=== PATIENT | male | born 1955 | race American Indian/Alaskan Native ===

== ENCOUNTER 2017-08-08 10:45 | Emergency (ER) | payer SELFPAY ==
[2017-08-08] MEDS ORDERED: ZOFRAN IV ONE (11:50)
[2017-08-08] MEDS ORDERED: NACL 0.9% 1000 ML 1,000 ML IV ONE (11:50)
[2017-08-08] MEDS ORDERED: TORADOL IV ONE (11:50)
[2017-08-08] MEDS ORDERED: PEPCID IV ONE (11:50)
--- NOTE | 2017-08-08 11:53 | Emergency Department Report ---
Blank Doc - Documentation Documentation: Patient is 62-year-old male who is has several months of nausea vomiting and epigastric pain. Patient was seen [facility] early this week and had a CT and ultrasound performed which according to the patient's was within normal limits. Patient was told it was slightly dehydrated was discharged home. Patient has had continued pain and has had 2 syncopal episodes after standing in the last week. Patient states the pain is epigastric it out of 10 and does radiate to the back. Patient denies any recent alcohol use. Patient states there is no diarrhea no chest pain shortness of breath fevers or chills this time. Brief physical exam patient has some epigastric discomfo. Patient will be moved to a treatment room for IV fluids laboratory investigation as well as a CT abdomen. Rt
[2017-08-08 12:16] LABS: Hematocrit 41.4 % (35.5-45.6); Hemoglobin 13.8 gm/dl (11.8-15.2); Mean Corpuscular HGB Conc 33 % (32-34); Mean Corpuscular Hemoglobin 30 pg (28-32); Mean Corpuscular Volume 91 fl (84-94); Platelet Count 357 K/mm3 (140-440); Red Blood Count 4.58 M/mm3 (3.65-5.03); Red Cell Distribution Width 13.6 % (13.2-15.2)
[2017-08-08 12:31] LABS: Alanine Aminotransferase 10 units/L (7-56); Albumin 4.4 g/dL (3.9-5); BUN/Creatinine Ratio 16; Blood Urea Nitrogen 18 mg/dL (9-20); Calcium 9.8 mg/dL (8.4-10.2); Hemolysis Index 11; Lipase 38 units/L (13-60)
[2017-08-08 13:45] LABS: Total Cells Counted 100
[2017-08-08 13:46] LABS: Basophils % (Manual) 0 % (0.0-1.8); Eosinophils % (Manual) 0 % (0.0-4.3); Platelet Estimate Consistent w Auto
--- NOTE | 2017-08-08 14:06 | Cat Scan Report ---
FINAL REPORT EXAM: CT ABDOMEN PELVIS WO CON HISTORY: epigastric pain NV TECHNIQUE: CT of the abdomen and pelvis without IV contrast. Coronal and sagittal reconstructed imaging provided. PRIORS: None currently available. FINDINGS: Evaluation limited by the lack intravenous contrast and intra-abdominal. ABDOMEN: Images of the esophagus are unremarkable. Liver, gallbladder, stomach, spleen, pancreas, adrenals, and kidneys are grossly unremarkable a noncontrast scan. No hydronephrosis. No nephroureteral stones. There is no abdominal aortic aneurysm. Moderate atherosclerotic disease noted. IVC is unremarkable. There is no periaortic or retroperitoneal adenopathy or mass. Knaa-yu-rbawynio stool. More moderate stool in the right colon. No wall thickening or inflammatory changes. Terminal ileum is unremarkable. The appendix is not identified. Pericecal region is obscured. Appendicitis is not entirely excluded. Small bowel loops are unremarkable. No obstructive pattern. No free air. No free fluid. Mesentery is unremarkable. Fat-containing umbilical hernia without strangulation. PELVIS: Distended bladder. No wall thickening. No stone. Enlarged heterogeneous prostate. There is no pelvic mass or adenopathy. Inguinal regions are unremarkable. Bones: No suspicious osseous lesions on this limited examination of the skeleton. Metastatic disease better evaluated with bone scan. Degenerative changes are in the spine. Chronic 50-75 percent compression fracture deformity at L5. IMPRESSION: Evaluation limited by the lack intravenous contrast and intra-abdominal. Appendix is not identified. Pericecal region is obscured. Appendicitis is not entirely excluded. Possible constipation. Distended bladder without wall thickening or stone. Enlarged heterogeneous prostate. Otherwise, no acute findings.
--- NOTE | 2017-08-08 14:46 | Emergency Department Report ---
ED Abdominal Pain HPI - General Chief Complaint: Back Pain/Injury Stated Complaint: BACK PAIN Time Seen by Provider: 08/08/17 11:32 Source: patient, family Mode of arrival: Ambulatory Limitations: No Limitations - History of Present Illness Initial Comments: This is a 62-year-old male he reports that he's been having pain in his epigastric area for a month. Report is seen at [facility] 2 weeks ago and he reports that he was doing yard work and started having abdominal back pain that is worsening. His pain to his abdomen and back disease on a 10 achy sometimes throbbing crampy. Pain is radiating from and epigastric area to his back. Denies any fever or chills. He reports urinary frequency but no urinary burning or urgency. Patient's family member reports that he lost about 50 pounds over the last 3 months. He's never had a colonoscopy. Denies any blood in his stool or any discolored stool. Denies any nausea or vomiting. They also report that patient passed out a few times while he was outside and they did a CT scan 2 weeks ago [facility] of his head which was normal CT scan of his back which she said was normal and it did not work and she family reported only thing they found that he had low potassium which they gave him potassium pills. Patient sister of colon cancer at age 41. He has diabetes that runs in both of his family. But no diabetes. He has a history of high blood pressure and also to his abdomen which he said he had surgery in the past. Denies that he usually goes to [facility] because he lives in [place]. MD Complaint: abdominal pain, other (back pain) Onset/Timin -: month(s) Location: epigastric Radiation: back Migration to: no migration Severity: severe Severity scale (0 -10): 8 Quality: cramping, aching Consistency: constant Improves With: nothing Worsens With: movement Context: other (unknown) Associated Symptoms: anorexia, syncope, other (50 pound weight loss within 3 months). denies: nausea, vomiting, diarrhea, fever, chills, constipation, dysuria, hematemesis, hematochezia, melena, hematuria Treatments Prior to Arrival: other (none) - Related Data Previous Rx's Medication Instructions Recorded Last Taken Type Pantoprazole [Protonix] 40 mg PO QDAY #60 tablet 10/14/13 Unknown Rx Acetaminophen/Codeine [Tylenol 1 tab PO Q6H PRN #12 tab 08/08/17 Unknown Rx /Codeine # 3 tab] Lansoprazole [Prevacid] 30 mg PO QDAY 30 Days #30 08/08/17 Unknown Rx capsule. Allergies Allergy/AdvReac Type Severity Reaction Status Date / Time No Known Allergies Allergy Unverified 07/26/13 09:02 ED Review of Systems ROS: Stated complaint: BACK PAIN Other details as noted in HPI Constitutional: denies: chills, fever Eyes: denies: vision change ENT: denies: ear pain, throat pain, epistaxis, congestion Respiratory: denies: cough, orthopnea, shortness of breath, SOB with exertion, wheezing Cardiovascular: denies: chest pain, palpitations, dyspnea on exertion, edema, syncope, paroxysmal nocturnal dyspnea Endocrine: increased urine, unexplained weight loss (50 pounds over 3 months), other (decreased appetite) Gastrointestinal: abdominal pain, other (loss of appetite). denies: nausea, vomiting, diarrhea, constipation, hematemesis, melena, hematochezia Genitourinary: frequency. denies: urgency, dysuria, hematuria, discharge, testicular pain, testicular mass Musculoskeletal: back pain. denies: joint swelling, arthralgia, myalgia Skin: denies: rash, lesions Neurological: other (past out a few times. None since he had a CT scan of the head at [facility] 2 weeks ago but he said he felt episode of dizziness one since.). denies: headache, weakness, numbness, paresthesias, abnormal gait, vertigo ED Past Medical Hx - Past Medical History Previous Medical History?: Yes Hx Hypertension: Yes Additional medical history: ulcer - Surgical History Past Surgical History?: Yes Additional Surgical History: abdominal surgery (ulcer) - Family History Family history: cancer, diabetes, hypertension - Social History Smoking Status: Current Every Day Smoker Substance Use Type: Non Opiate Pain, Prescribed - Medications Home Medications: Home Medications Medication Instructions Recorded Confirmed Last Taken Type Pantoprazole [Protonix] 40 mg PO QDAY #60 tablet 10/14/13 Unknown Rx Acetaminophen/Codeine [Tylenol 1 tab PO Q6H PRN #12 tab 08/08/17 Unknown Rx /Codeine # 3 tab] Lansoprazole [Prevacid] 30 mg PO QDAY 30 Days #30 08/08/17 Unknown Rx capsule. ED Physical Exam - General Limitations: No Limitations General appearance: alert, in no apparent distress - Head Head exam: Present: atraumatic, normocephalic, normal inspection - Eye Eye exam: Present: normal appearance, PERRL, EOMI Pupils: Present: normal accommodation - ENT ENT exam: Present: normal exam, normal orophraynx, mucous membranes moist - Neck Neck exam: Present: normal inspection, full ROM. Absent: tenderness, lymphadenopathy, thyromegaly - Respiratory Respiratory exam: Present: normal lung sounds bilaterally. Absent: respiratory distress, chest wall tenderness, accessory muscle use - Cardiovascular Cardiovascular Exam: Present: regular rate, normal rhythm, normal heart sounds. Absent: systolic murmur, diastolic murmur - GI/Abdominal GI/Abdominal exam: Present: soft, tenderness (epigastric area), normal bowel sounds. Absent: distended, guarding, rebound, rigid, organomegaly, mass, bruit , pulsatile mass, hernia - Extremities Exam Extremities exam: Present: normal inspection, full ROM, normal capillary refill , other (no clubbing, cyanosis or edema. +2 pulses to all extremities and no neurovascular compromise). Absent: tenderness, pedal edema, joint swelling, calf tenderness - Back Exam Back exam: Present: normal inspection, full ROM, other (ablated so that any difficulties). Absent: tenderness, CVA tenderness (R), CVA tenderness (L), muscle spasm, paraspinal tenderness, vertebral tenderness, rash noted - Neurological Exam Neurological exam: Present: alert, oriented X3 - Psychiatric Psychiatric exam: Present: normal affect, normal mood - Skin Skin exam: Present: warm, dry, intact, normal color. Absent: rash ED Course Vital Signs 08/08/17 08/08/17 08/08/17 10:59 12:12 14:50 Temperature 98.2 F 98.2 F Pulse Rate 75 62 Respiratory 18 20 15 Rate Blood Pressure 157/104 Blood Pressure 143/81 [Right] O2 Sat by Pulse 98 100 Oximetry - Reevaluation(s) Reevaluation #1: 08/08/17 15:34 Patient was screened by Dr. Logan and he was given 1 L normal saline, Toradol 30 mg IV, Zofran 4 mg IV and Pepcid 20 mg IV. Blood pressure is better and he said his pain is better. ED Medical Decision Making - Lab Data Result diagrams: 08/08/17 11:59 08/08/17 11:59 Lab Results 08/08/17 08/08/17 Range/Units 11:59 11:59 WBC 7.8 (4.5-11.0) K/mm3 RBC 4.58 (3.65-5.03) M/mm3 Hgb 13.8 (11.8-15.2) gm/dl Hct 41.4 (35.5-45.6) % MCV 91 (84-94) fl MCH 30 (28-32) pg MCHC 33 (32-34) % RDW 13.6 (13.2-15.2) % Plt Count 357 (140-440) K/mm3 Add Manual Diff Complete Total Counted 100 Seg Neuts % (Manual) 67.0 (40.0-70.0) % Band Neutrophils % 0 % Lymphocytes % (Manual) 26.0 (13.4-35.0) % Reactive Lymphs % (Man) 0 % Monocytes % (Manual) 7.0 (0.0-7.3) % Eosinophils % (Manual) 0 (0.0-4.3) % Basophils % (Manual) 0 (0.0-1.8) % Metamyelocytes % 0 % Myelocytes % 0 % Promyelocytes % 0 % Blast Cells % 0 % Nucleated RBC % Not Reportable Seg Neutrophils # Man 5.2 (1.8-7.7) K/mm3 Band Neutrophils # 0.0 K/mm3 Lymphocytes # (Manual) 2.0 (1.2-5.4) K/mm3 Abs React Lymphs (Man) 0.0 K/mm3 Monocytes # (Manual) 0.5 (0.0-0.8) K/mm3 Eosinophils # (Manual) 0.0 (0.0-0.4) K/mm3 Basophils # (Manual) 0.0 (0.0-0.1) K/mm3 Metamyelocytes # 0.0 K/mm3 Myelocytes # 0.0 K/mm3 Promyelocytes # 0.0 K/mm3 Blast Cells # 0.0 K/mm3 WBC Morphology Not Reportable Hypersegmented Neuts Not Reportable Hyposegmented Neuts Not Reportable Hypogranular Neuts Not Reportable Smudge Cells Not Reportable Toxic Granulation Not Reportable Toxic Vacuolation Not Reportable Dohle Bodies Not Reportable Pelger-Huet Anomaly Not Reportable Angelic Rods Not Reportable Platelet Estimate Consistent w auto Clumped Platelets Not Reportable Plt Clumps, EDTA Not Reportable Large Platelets Not Reportable Giant Platelets Not Reportable Platelet Satelliting Not Reportable Plt Morphology Comment Not Reportable RBC Morphology Not Reportable Dimorphic RBCs Not Reportable Polychromasia Not Reportable Hypochromasia Not Reportable Poikilocytosis Not Reportable Anisocytosis Not Reportable Microcytosis Not Reportable Macrocytosis Not Reportable Spherocytes Not Reportable Pappenheimer Bodies Not Reportable Sickle Cells Not Reportable Target Cells Not Reportable Tear Drop Cells Not Reportable Ovalocytes Not Reportable Helmet Cells Not Reportable Andre-[place] Bodies Not Reportable [place] Rings Not Reportable [place] Cells Not Reportable Bite Cells Not Reportable Crenated Cell Not Reportable Elliptocytes Not Reportable Acanthocytes (Spur) Not Reportable Rouleaux Not Reportable Hemoglobin C Crystals Not Reportable Schistocytes Not Reportable Malaria parasites Not Reportable [place] Bodies Not Reportable Hem Pathologist Commnt No Sodium 140 (137-145) mmol/L Potassium 4.6 (3.6-5.0) mmol/L Chloride 99.2 (98-107) mmol/L Carbon Dioxide 30 (22-30) mmol/L Anion Gap 15 mmol/L BUN 18 (9-20) mg/dL Creatinine 1.1 (0.8-1.5) mg/dL Estimated GFR > 60 ml/min BUN/Creatinine Ratio 16 % Glucose 98 (75-100) mg/dL Calcium 9.8 (8.4-10.2) mg/dL Total Bilirubin 0.40 (0.1-1.2) mg/dL AST 16 (5-40) units/L ALT 10 (7-56) units/L Alkaline Phosphatase 70 (35-129) units/L Total Protein 7.2 (6.3-8.2) g/dL Albumin 4.4 (3.9-5) g/dL Albumin/Globulin Ratio 1.6 % Lipase 38 (13-60) units/L Lab Results 08/08/17 08/08/17 08/08/17 Range/Units 11:59 11:59 Unknown WBC 7.8 (4.5-11.0) K/mm3 RBC 4.58 (3.65-5.03) M/mm3 Hgb 13.8 (11.8-15.2) gm/dl Hct 41.4 (35.5-45.6) % MCV 91 (84-94) fl MCH 30 (28-32) pg MCHC 33 (32-34) % RDW 13.6 (13.2-15.2) % Plt Count 357 (140-440) K/mm3 Add Manual Diff Complete Total Counted 100 Seg Neuts % (Manual) 67.0 (40.0-70.0) % Band Neutrophils % 0 % Lymphocytes % (Manual) 26.0 (13.4-35.0) % Reactive Lymphs % (Man) 0 % Monocytes % (Manual) 7.0 (0.0-7.3) % Eosinophils % (Manual) 0 (0.0-4.3) % Basophils % (Manual) 0 (0.0-1.8) % Metamyelocytes % 0 % Myelocytes % 0 % Promyelocytes % 0 % Blast Cells % 0 % Nucleated RBC % Not Reportable Seg Neutrophils # Man 5.2 (1.8-7.7) K/mm3 Band Neutrophils # 0.0 K/mm3 Lymphocytes # (Manual) 2.0 (1.2-5.4) K/mm3 Abs React Lymphs (Man) 0.0 K/mm3 Monocytes # (Manual) 0.5 (0.0-0.8) K/mm3 Eosinophils # (Manual) 0.0 (0.0-0.4) K/mm3 Basophils # (Manual) 0.0 (0.0-0.1) K/mm3 Metamyelocytes # 0.0 K/mm3 Myelocytes # 0.0 K/mm3 Promyelocytes # 0.0 K/mm3 Blast Cells # 0.0 K/mm3 WBC Morphology Not Reportable Hypersegmented Neuts Not Reportable Hyposegmented Neuts Not Reportable Hypogranular Neuts Not Reportable Smudge Cells Not Reportable Toxic Granulation Not Reportable Toxic Vacuolation Not Reportable Dohle Bodies Not Reportable Pelger-Huet Anomaly Not Reportable Angelic Rods Not Reportable Platelet Estimate Consistent w auto Clumped Platelets Not Reportable Plt Clumps, EDTA Not Reportable Large Platelets Not Reportable Giant Platelets Not Reportable Platelet Satelliting Not Reportable Plt Morphology Comment Not Reportable RBC Morphology Not Reportable Dimorphic RBCs Not Reportable Polychromasia Not Reportable Hypochromasia Not Reportable Poikilocytosis Not Reportable Anisocytosis Not Reportable Microcytosis Not Reportable Macrocytosis Not Reportable Spherocytes Not Reportable Pappenheimer Bodies Not Reportable Sickle Cells Not Reportable Target Cells Not Reportable Tear Drop Cells Not Reportable Ovalocytes Not Reportable Helmet Cells Not Reportable Andre-[place] Bodies Not Reportable [place] Rings Not Reportable [place] Cells Not Reportable Bite Cells Not Reportable Crenated Cell Not Reportable Elliptocytes Not Reportable Acanthocytes (Spur) Not Reportable Rouleaux Not Reportable Hemoglobin C Crystals Not Reportable Schistocytes Not Reportable Malaria parasites Not Reportable Cayetano Bodies Not Reportable Hem Pathologist Commnt No Sodium 140 (137-145) mmol/L Potassium 4.6 (3.6-5.0) mmol/L Chloride 99.2 (98-107) mmol/L Carbon Dioxide 30 (22-30) mmol/L Anion Gap 15 mmol/L BUN 18 (9-20) mg/dL Creatinine 1.1 (0.8-1.5) mg/dL Estimated GFR > 60 ml/min BUN/Creatinine Ratio 16 % Glucose 98 (75-100) mg/dL Calcium 9.8 (8.4-10.2) mg/dL Total Bilirubin 0.40 (0.1-1.2) mg/dL AST 16 (5-40) units/L ALT 10 (7-56) units/L Alkaline Phosphatase 70 (35-129) units/L Total Protein 7.2 (6.3-8.2) g/dL Albumin 4.4 (3.9-5) g/dL Albumin/Globulin Ratio 1.6 % Lipase 38 (13-60) units/L Urine Color Yellow (Yellow) Urine Turbidity Clear (Clear) Urine pH 5.0 (5.0-7.0) Ur Specific [place] 1.014 (1.003-1.030) Urine Protein <15 mg/dl (Negative) mg/dL Urine Glucose (UA) Neg (Negative) mg/dL Urine Ketones Neg (Negative) mg/dL Urine Blood Neg (Negative) Urine Nitrite Neg (Negative) Urine Bilirubin Neg (Negative) Urine Urobilinogen < 2.0 (<2.0) mg/dL Ur Leukocyte Esterase Neg (Negative) Urine WBC (Auto) 1.0 (0.0-6.0) /HPF Urine RBC (Auto) 3.0 (0.0-6.0) /HPF Urine Mucus Few /HPF - Radiology Data Radiology results: report reviewed Findings [facility] [address] [id number] Cat Scan Report Signed Patient: RHONDA BANERJEE MR#: [id number] : 1955 Acct:[id number] Age/Sex: 58 / M ADM Date: 10/13/13 Loc: ED Attending Dr: Ordering Physician: HARVEY DRUMMOND MD Date of Service: 10/13/13 Procedure(s): CT abdomen pelvis wo con Accession Number(s): [id number] cc: HARVEY DRUMMOND MD PROCEDURE: CT ABDOMEN AND PELVIS WITHOUT CONTRAST TECHNIQUE: Computerized axial tomography of the abdomen and pelvis was performed without intravenous contrast. This study is performed without intravascular contrast material and its sensitivity for abdominal and pelvic pathology, including neoplasms, inflammation, abscess, free fluid, thrombosis, arterial dissection and infarction, is reduced compared with a contrast enhanced study. CPT 87567 HISTORY: ABD PAIN COMPARISONS: Prior studies are not available to compare. TECHNICAL QUALITY: Satisfactory FINDINGS: Visualized lower thorax: Mild linear scarring left lung base. Liver: Normal size and attenuation. Spleen: Normal size and attenuation. Gallbladder and biliary system: Normal. Pancreas: Normal. Adrenals: Normal. Kidneys: Normal. GI tract: There is apparent severe circumferential wall thickening of the distal stomach and/or proximal duodenum. This is nonspecific but appears definitely abnormal. This could be due to inflammation. However a tumor could easily have a similar appearance. Tumor here is definitely not excluded. There is some luminal narrowing of the distal stomach and proximal duodenum as result of this. Evaluation is limited without oral contrast. There is a moderate amount of stool throughout the colon greater on the right side. GI tract appears unremarkable otherwise for noncontrast exam. However I cannot specifically identify the appendix. This in part is due to the fact the patient is very thin with a paucity of abdominal fat. This limits detection of inflammation in general. Lymph nodes and mesentery: Normal. Vasculature: Normal. Bladder: Normal. Reproductive organs: Normal. Peritoneum: No free fluid. Musculoskeletal structures: Moderate to severe compression of the L5 vertebral body of indeterminate age. Other: None. IMPRESSION: 1. THERE IS APPARENT SEVERE CIRCUMFERENTIAL WALL THICKENING OF THE DISTAL STOMACH AND/OR PROXIMAL DUODENUM. THIS IS NONSPECIFIC BUT A GASTRIC OR DUODENAL TUMOR COULD EASILY HAVE AN APPEARANCE SUCH THIS. IT COULD BE DUE TO INFLAMMATION BUT AGAIN TUMOR IS DEFINITELY NOT EXCLUDED AND THIS REQUIRES FURTHER EVALUATION. FURTHER EVALUATION WITH ENDOSCOPY RECOMMENDED. EVALUATION IS SOMEWHAT LIMITED ON THIS SCAN WITHOUT ORAL CONTRAST. 2. MODERATE TO SEVERE COMPRESSION OF THE L5 VERTEBRAL BODY. THIS IS OF INDETERMINATE AGE. IT COULD BE ALL OLD BUT IF THERE ARE ACUTE SYMPTOMS REFERABLE TO THIS LEVEL IT COULD BE AN ACUTE COMPRESSION FRACTURE. THERE IS NO SIGNIFICANT RETROLISTHESIS. 3. EVALUATION FOR INFLAMMATION IS SOMEWHAT LIMITED BECAUSE THE PATIENT IS VERY THIN WITH A PAUCITY OF ABDOMINAL FAT 4. THERE IS NO EVIDENCE FREE AIR ws:LISHA Electronically Signed By Arsenio Husain M.D. on 2013-10-13 23:28 CTZ Transcribed By: JACK Dictated By: ARSENIO HUSAIN MD Electronically Authenticated By: ARSENIO HUSAIN MD Signed Date/Time: 10/13/132330 DD/ 35 TD/TT: 10/13/132335 - Medical Decision Making ED course: This is a 62-year-old male here reports that he has epigastric sternal pain that radiated to his back and family reports that he lost 50 pounds in 3 months. Patient reports urinary frequency but no burning or urination. Denies any nausea or vomiting. Denies any neurological symptoms to include loss of bowel or bladder function or numbness certainly into extremities. He is here to be evaluated. Patient was seen at [facility] [address] scan of the back per family and they did not see anything. He also had lab work done and family reported that everything was normal except his potassium was low so they gave him potassium replacement. Family also reports the patient has near syncopal episode with couple episode of passing out and they did CT scan of the head at [facility] and did not find anything. Patient was screened by Dr. Logan and labs and diagnostic tests ordered. Patient had CT scan of the abdomen and pelvis without contrast this was dictated by radiologist and report reviewed by myself and this showed patient with mass between stomach and small intestine, L5 compression fracture which radiologist report is more likely subacute but does not know inpatient does not have any neurological deficit without any loss of bowel or bladder function. CT scan also showed patient with a large prostate this with suggest why he is having urinary frequency. Patient did not know this. He has never had a colonoscopy. Patient also had CBC, CMP, lipase and urinalysis which were all stable. Lab results and CT scan findings discussed with patient and family and they voiced understanding. Patient with epigastric abdominal pain, abdominal mass, urinary frequency, enlarged prostate, L5 compression fracture without any abnormal neurological symptoms, malnourishment BMI of 16.9. Weight loss of 50 pounds over 3 months. I discussed this with Dr. Logan and patient will need to follow-up with [facility] primary care and also gastroenterology for further evaluation and management. I discussed this with family in detail and told them that they need to bring patient to [facility] and he'll start off with primary care and I also gave them a copy of CT and lab reports and report of CT scan. I encouraged patient that he needs to increase his fluid intake and also drink boost to increase his weight. He was given 1 L of normal saline IV and is able to tolerate oral liquids in the emergency room. He was given Toradol 30 mg IV, Zofran 4 mg IV and Pepcid 20 mg IV and he said he feels better. I gave him prescription for Zantac because he has a history of stomach ulcer with previous surgery. He also got prescriptions for Tylenol 3 to manage pain. Patient discharged home with his family and voices understanding of discharge instruction to follow up with [facility] in 3 days. I also discussed with him he needs to come back to the emergency room if his condition worsens. He voiced understanding. Patient vital signs are stable and is afebrile. He is nontoxic in appearance - Differential Diagnosis malignancy of GI system, GI ulcer, UTI, kidney stones Critical care attestation.: If time is entered above; I have spent that time in minutes in the direct care of this critically ill patient, excluding procedure time. ED Disposition Clinical Impression: Mass of stomach, Epigastric abdominal pain, H/O gastric ulcer, Low body mass index (BMI) Malnourished Qualifiers: Malnutrition type: unspecified type Qualified Code(s): E46 - Unspecified protein-calorie malnutrition Back pain Qualifiers: Back pain location: back pain in other location Chronicity: unspecified Qualified Code(s): M54.89 - Other dorsalgia Closed compression fracture of L5 lumbar vertebra Qualifiers: Encounter type: initial encounter Qualified Code(s): S32.050A - Wedge compression fracture of fifth lumbar vertebra, initial encounter for closed fracture Disposition: DC-01 TO HOME OR SELFCARE Is pt being admited?: No Does the pt Need Aspirin: No Condition: Stable Instructions: Colonoscopy (GEN), Benign Prostatic Hypertrophy (ED), Stomach Cancer (ED), Vertebral Compression Fracture (ED), Upper Endoscopic Gastrointestinal Ultrasonography (ED), Abdominal Pain (ED), Back Pain (ED) Additional Instructions: Since he go to [facility] for your care please follow up with [facility] 3 days and bring all your paperwork with U along with the CT and lab results. Please increase her fluid intake and try to drink boost which can increase your weight because you are underweight. If his symptoms worsen, develop bleeding, dizziness, feeling of passing out or if he passed out, fever and/or chills, increase in abdominal or back pain, numbness or tingling to your legs, loss of bowel or bladder function please return to the emergency room Follow up at [facility] for primary care and also for stomach doctor which is gastroenterology. CT scan is obtained that you have fracture in your lower back which is probably old fracture and that you have a mass between year stomach and use small intestine so you'll need to have endoscopy by stomach doctor for further investigation. Prescriptions: Acetaminophen/Codeine [Tylenol /Codeine # 3 tab] 1 tab PO Q6H PRN #12 tab PRN Reason: pain Lansoprazole [Prevacid] 30 mg PO QDAY 30 Days #30 capsule. Referrals: [facility] [Provider Group] - 3-5 Days PARAMJIT LIM MD [Staff Physician] - 08/11/17 [facility] [Outside] - 08/11/17 [facility] [Outside] - 08/11/17 Forms: Work/School Release Form(ED)
[2017-08-08 14:51] VITALS: BP 143/81
[2017-08-08 14:53] LABS: Bilirubin,Urine NEG (Negative); Blood,Urine NEG (Negative); Color,Urine Yellow (Yellow); Mucus,Urine FEW /HPF; Protein,Urine <15 mg/dL mg/dL (Negative); Urobilinogen,Urine < 2.0 mg/dL (<2.0)
== END 2017-08-08 16:14 | disposition home or self-care (01) ==
LOC: ED 10:45
DX: S32.050A Wedge compression fracture of fifth lumbar vertebra, initial encounter for closed fracture (principal); M54.89 Other dorsalgia; E46 Unspecified protein-calorie malnutrition; F17.200 Nicotine dependence, unspecified, uncomplicated; Z98.890 Other specified postprocedural states; I10 Essential (primary) hypertension; X58.XXXA Exposure to other specified factors, initial encounter; Y93.H2 Activity, gardening and landscaping; Y92.89 Other specified places as the place of occurrence of the external cause; Y99.8 Other external cause status
CPT/HCPCS: 36415; 74176; 80053; 81001; 83690; 85007; 85025; 96361; 96374; 96375; 99284; J1885; J2405; J7030